=== PATIENT | female | born 1990 | race Caucasian/White ===

== ENCOUNTER 2019-01-06 09:18 | Emergency (ER) | payer SELFPAY ==
[2019-01-06 09:25] VITALS: BMI 19.2
--- NOTE | 2019-01-06 09:35 | PDOC ---
History of Present Illness - General Chief Complaint: Vaginal Bleeding Stated Complaint: VAGINAL BLEEDING Time Seen by Provider: 01/06/19 09:30 History Source: Patient, Parent(s) Exam Limitations: Language Barrier - History of Present Illness Travel History: Yes (From , arrived 12/31/2018) Initial Comments: 01/06/19 10:02 28yo F with no significant PMH presenting to ED for vaginal bleeding. She came from the about 1 week ago. She was on OCPs "Noge?" for 3 years and stopped taking it 1 month ago. She was having bleeding after stopping but the bleeding stopped for about 1.5 weeks. Bleeding returned last night and has been worse today. She states that she used about 2 pads or so before but today she used pads and went through 3 towels. She noticed clots as well. She endorses pelvic cramping. Denies fevers, chills, n/v/d, urinary symptoms, back pain, sob, chest pain, lightheadedness, dizziness, palpitations. PMD: in PMH: none PSH: none Meds: none Allergies: nkda Past History - Past Medical History Allergies/Adverse Reactions: Allergies Allergy/AdvReac Type Severity Reaction Status Date / Time No Known Allergies Allergy Verified 01/06/19 09:24 Home Medications: Ambulatory Orders NK [No Known Home Medication] 01/06/19 COPD: No - Suicide/Smoking/Psychosocial Hx Smoking History: Never smoked Information on smoking cessation initiated: No Hx Alcohol Use: No Drug/Substance Use Hx: No *Physical Exam - Vital Signs Last Vital Signs Temp Pulse Resp BP Pulse Ox 98 F 100 H 18 118/81 100 01/06/19 09:23 01/06/19 09:23 01/06/19 09:23 01/06/19 09:23 01/06/19 09:23 ED Treatment Course - LABORATORY CBC & Chemistry Diagram: 01/06/19 10:23 01/06/19 10:23 Medical Decision Making - Medical Decision Making 01/06/19 10:12 28yo F with no significant PMH presenting to ED for vaginal bleeding. She came from the about 1 week ago. She was on OCPs "Noge?" for 3 years and stopped taking it 1 month ago. She was having bleeding after stopping but the bleeding stopped for about 1.5 weeks. Bleeding returned last night and has been worse today. She states that she used about 2 pads or so before but today she used pads and went through 3 towels. She noticed clots as well. She endorses pelvic cramping. Denies fevers, chills, n/v/d, urinary symptoms, back pain, sob, chest pain, lightheadedness, dizziness, palpitations. Vitals: hr 100 PE: bright blood in vaginal vault with clots, actively bleeding. discomfort with bimanual exam ddx includes but not limited to (iup v. ectopic), , fibroids, medication discontinuation, coagulopathy, mass/malignancy with tachycardia, will order cbc, ts, cmp ua, upreg iv fluids, tylenol for pain 01/06/19 12:32 Labs show low hgb (9.4), low MCV and elevated RDW, likely iron deficiency. Urine positive LE but few bacteria. Blood likely from menstruation. TVUS normal, no masses, normal adnexa. 01/06/19 12:32 Pt states bleeding is less than this morning. Vitals are normal, safe for dc home. Given referral to master machinist. pt understands and agrees to plan. *DC/Admit/Observation/Transfer Diagnosis at time of Disposition: Vaginal bleeding - Discharge Dispostion Disposition: HOME Condition at time of disposition: Good Decision to Admit order: No - Referrals Referrals: Lucas Zabala MD [Staff Physician] - - Patient Instructions Printed Discharge Instructions: DI for Vaginal Bleeding Additional Instructions: Hoy te vieron en la skip de emergencias por sangrado vaginal. Parece que se debe a la interrupcin de las pldoras anticonceptivas. La ecografa fue normal. Los anlisis de anaya muestran que puede tener deficiencia de paco. El sangrado abundante debe detenerse en el siguiente da o dos. Puede shital Tylenol o Motrin para el dolor segn sea necesario. Recomiendo concertar reagan kate con un gineclogo. La informacin se proporciona a continuacin. Utilice las almohadillas proporcionadas en lugar de las toallas. Regrese a la skip de emergencias si el dolor empeora, el sangrado empeora, se siente mareado, siente que va a desmayarse o si se presenta algn sntoma nuevo. Gena You were seen in the emergency room today for vaginal bleeding. It seems like it is due to stopping the control pills. The ultrasound was normal. The blood tests show that you may be iron deficient. Heavy bleeding should stop in the next day or two. You can take Tylenol or Motrin for the pain as needed. I recommend making an appointment with a security lead. Information is provided below. Use the pads provided instead of the towels. Please come back to the emergency room if pain gets worse, bleeding gets worse, you feel lightheaded, you feel like you are going to faint or if any new concerning symptom develops. Thank you Print Language: [id number] - Post Discharge Activity
[2019-01-06] MEDS ORDERED: SODIUM CHLORIDE 1,000 ML IV STA (09:52)
[2019-01-06] MEDS ORDERED: ACETAMINOPHEN 500 MG TABLET (FP) PO ONE (09:52)
[2019-01-06 10:05] LABS: EPI CELLS 1.1 /HPF (0-5/HPF); HCG,QUALITATIVE URINE Negative; HYALINE CASTS 16 /lpf (0-8); URINE APPEARANCE TURBID; URINE BILIRUBIN 1+ (NEGATIVE); URINE COLOR RED; URINE GLUCOSE (UA) NEGATIVE (NEGATIVE); URINE KETONE NEGATIVE (NEGATIVE); URINE LEUK ESTERASE 2+ (NEGATIVE); URINE NITRITE POSITIVE (NEGATIVE); URINE PROTEIN 2+ (NEGATIVE); URINE RBC 8339 /hpf (0-4); URINE UROBILINOGEN 0.2 mg/dL (0.2-1.0); URINE WBC 6 /hpf (0-5)
[2019-01-06] MEDS ORDERED: ACETAMINOPHEN 325 MG TABLET (FP) ONE (10:07)
[2019-01-06 10:27] LABS: EOS % 1.8 % (0-4.5); HEMATOCRIT 30.2 % (32.4-45.2); HEMOGLOBIN 9.4 GM/dL (10.7-15.3); MCH 22.5 pg (25.7-33.7); MCHC 31.2 g/dl (32.0-36.0); MEAN CELL VOLUME 72.1 fl (80-96); MEAN PLT VOLUME 9.2 fl (7.5-11.1); NEUT % 38.2 % (42.8-82.8); PLATELET COUNT 244 K/MM3 (134-434); RBC 4.19 M/mm3 (3.60-5.2); RDW 17.2 % (11.6-15.6); WHITE BLOOD COUNT 3.9 K/mm3 (4.0-10.0)
--- NOTE | 2019-01-06 10:37 | PDOC ---
Documentation entered by Amirah Aceves SCRIBE, acting as scribe for Byron Welsh MD. Byron Welsh MD: This documentation has been prepared by the Ketan gurrola Sammi, SCRIBE, under my direction and personally reviewed by me in its entirety. I confirm that the documentation accurately reflects all work, treatment, procedures, and medical decision making performed by me. Attending Attestation - Resident Resident Name: Erna Rodas - ED Attending Attestation I have performed the following: I have examined & evaluated the patient, The case was reviewed & discussed with the resident, I agree w/resident's findings & plan, Exceptions are as noted - HPI HPI: 01/06/19 10:13 The patient is a 28 year old female, with no significant PMH, who presents to the emergency room for evaluation of over 1 month of vaginal bleeding. Pt reports bleeding began 1 month ago, was intermittent, about the same as a period (4-5 pads per day) and then stopped for 1 week and half but then returned yesteday. She notes the bleeding since yesterday has been heavier and she has noted some clotting, and has had to use a towel instead of pads. She complains of suprapubic and low back pain intermittently that she describes as cramping. The patient states she had stopped her control pill that she was on for 3 years about 1 month ago and the bleeding started shortly afterwards. The patient arrived from [place] this past weekend and reports being evaluated there a couple of weeks ago where she was informed the bleeding was due to terminating the control. The patient does not yet have a provider here. Denies nausea, vomiting, headache, constipation, or diarrhea. Denies CP/SOB, headache, focal weakness/numbness. Denies F/C, vaginal DC. She is not sexually active. Allergies: NKA - Physicial Exam PE: 01/06/19 10:35 agree with resident exam Well appearing No abd ttp, rebound or guarding No CVAT No back ttp No midline spinal ttp - Medical Decision Making 01/06/19 10:36 28yo F presents to the ED with vaginal bleeding intermittently for 1 month immediately after stopping PO control Vitals with borderline tachycardia, otherwise wnl DDx includes DUB vs first trimester bleeding vs ovarian cyst (although no R or L adnexal ttp on Dr. Rodas's exam) Plan for urine preg, labs, TVUS, UA, reassess 01/06/19 13:26 UPT neg Labs with anemia to 9.4, otherwise wnl UA with possible UTI, although dirty sample and thus will hold off on treatment as pt has no urinary sxs TVUS wnl Likely DUB s/p stopping OCPs She is hemodynamically stable and well appearing Communicated to patient to return to the ED if she is soaking through 2 or more pads per hour for more than 2 hours She expresses understadning She will f/u with Dr. Zabala I discussed the physical exam findings, ancillary test results and final diagnoses with the patient. I answered all of the patient's questions. The patient was satisfied with the care received and felt comfortable with the discharge plan and treatment plan. The patient will call their primary care physician within 24 hours to arrange follow-up and will return to the Emergency Department with any new, persistent or worsening symptoms.
[2019-01-06 10:55] LABS: ALBUMIN 3.5 g/dl (3.4-5.0); BILIRUBIN,TOTAL 0.2 mg/dL (0.2-1); BLOOD UREA NITROGEN 14.1 mg/dL (7-18); CALCIUM 8.8 mg/dL (8.5-10.1); CREATININE 0.6 mg/dL (0.55-1.3); POTASSIUM 4.7 mmol/L (3.5-5.1); TOT PROT 7.3 g/dl (6.4-8.2)
[2019-01-06 12:42] VITALS: BP 118/76; PULSE 72; TEMP 98.4
== END 2019-01-06 12:42 | disposition home or self-care (01) ==
LOC: JER 09:18
PROC: 3E0337Z Introduction of Electrolytic and Water Balance Substance into Peripheral Vein, Percutaneous Approach (ICD-10-PCS; principal; 2019-01-06)
DX: N93.9 Abnormal uterine and vaginal bleeding, unspecified (principal)
CPT/HCPCS: 36415; 76830-TC; 80053; 81003; 84703; 85025; 86850; 86900; 86901; 87086; 99283-25; J7030

== ENCOUNTER 2021-12-16 12:18 | Emergency (ER) | payer OTHER ==
[2021-12-16 12:26] VITALS: BP 119/81; PULSE 102; TEMP 97; BMI 23.3
[2021-12-16] MEDS ORDERED: ACETAMINOPHEN 500 MG TABLET (FP) PO ONE (12:54)
[2021-12-16] MEDS ORDERED: ACETAMINOPHEN 325 MG TABLET (FP) ONE (13:26)
[2021-12-16 14:16] LABS: BASO % 0.6 % (0-2.0); EOS % 0.8 % (0-4.5); HEMATOCRIT 37.2 % (32.4-45.2); HEMOGLOBIN 12.5 GM/dL (10.7-15.3); LYMPH % 27.4 % (8-40); MCH 28.2 pg (25.7-33.7); MCHC 33.7 g/dl (32.0-36.0); MEAN CELL VOLUME 83.5 fl (80-96); MEAN PLT VOLUME 9.7 fl (7.5-11.1); MONO % 7.3 % (3.8-10.2); NEUT % 63.9 % (42.8-82.8); PLATELET COUNT 245 10^3/uL (134-434); RBC 4.45 M/mm3 (3.60-5.2); RDW 13.3 % (11.6-15.6); WHITE BLOOD COUNT 7.8 K/mm3 (4.0-10.0)
[2021-12-16 14:42] LABS: BLOOD UREA NITROGEN 9.5 mg/dL (7-18)
[2021-12-16 14:45] LABS: CREATININE 0.6 mg/dL (0.55-1.3)
[2021-12-16 15:39] LABS: EPI CELLS 21 /uL (0-25.1); HYALINE CASTS 0 /uL (0-3.1); URINE APPEARANCE CLEAR; URINE BACTERIA 141 /uL (0-1359); URINE BILIRUBIN NEGATIVE (NEGATIVE); URINE COLOR YELLOW; URINE GLUCOSE (UA) NEGATIVE (NEGATIVE); URINE KETONE NEGATIVE (NEGATIVE); URINE LEUK ESTERASE NEGATIVE (NEGATIVE); URINE NITRITE NEGATIVE (NEGATIVE); URINE PROTEIN NEGATIVE (NEGATIVE); URINE RBC 2 /uL (0-23.9); URINE UROBILINOGEN 0.2 mg/dL (0.2-1.0); URINE WBC 4 /uL (0-25.8)
== END 2021-12-16 18:00 | disposition home or self-care (01) ==
LOC: JER 12:18
DX: O26.892 Other specified pregnancy related conditions, second trimester (principal); R10.30 Lower abdominal pain, unspecified; Z3A.16 16 weeks gestation of pregnancy
CPT/HCPCS: 36415; 76815-TC; 80048; 81003; 85025; 86850; 86900; 86901; 87086; 99284-25

== ENCOUNTER 2022-07-18 18:23 | Inpatient (IN) | payer OTHER ==
[2022-07-18 18:34] VITALS: BMI 24.5
[2022-07-18] MEDS ORDERED: ACETAMINOPHEN 325 MG TABLET (FP) PO ONE (20:46)
[2022-07-18] MEDS ORDERED: ACETAMINOPHEN 325 MG TABLET (FP) ONE (21:14)
[2022-07-18 21:40] LABS: BASO % 0.4 % (0-2.0); EOS % 1.2 % (0-4.5); HEMATOCRIT 42.7 % (32.4-45.2); HEMOGLOBIN 14.1 GM/dL (10.7-15.3); LYMPH % 29.3 % (8-40); MCH 26.8 pg (25.7-33.7); MEAN CELL VOLUME 81.3 fl (80-96); MEAN PLT VOLUME 9.6 fl (7.5-11.1); MONO % 10.5 % (3.8-10.2); NEUT % 58.6 % (42.8-82.8); PLATELET COUNT 161 10^3/uL (134-434); RBC 5.26 M/mm3 (3.60-5.2); RDW 15.7 % (11.6-15.6); WHITE BLOOD COUNT 8.5 K/mm3 (4.0-10.0)
[2022-07-18 21:46] LABS: EPI CELLS 9 /uL (0-25.1); HYALINE CASTS 0 /uL (0-3.1); URINE APPEARANCE CLEAR; URINE BILIRUBIN NEGATIVE (NEGATIVE); URINE COLOR DK YELLOW; URINE GLUCOSE (UA) NEGATIVE (NEGATIVE); URINE KETONE NEGATIVE (NEGATIVE); URINE LEUK ESTERASE 1+ (NEGATIVE); URINE NITRITE POSITIVE (NEGATIVE); URINE PROTEIN NEGATIVE (NEGATIVE); URINE RBC 21 /uL (0-23.9); URINE UROBILINOGEN 0.2 mg/dL (0.2-1.0); URINE WBC 39 /uL (0-25.8)
[2022-07-18 21:55] LABS: HCG,QUALITATIVE URINE Negative
[2022-07-18 21:59] LABS: CALCIUM 8.9 mg/dL (8.5-10.1)
[2022-07-18 22:00] LABS: BLOOD UREA NITROGEN 19.2 mg/dL (7-18)
[2022-07-18 22:03] LABS: CREATININE 1.1 mg/dL (0.55-1.3)
[2022-07-18 22:05] LABS: TOT PROT 7.1 g/dl (6.4-8.2)
[2022-07-18 22:12] LABS: BILIRUBIN,TOTAL 0.4 mg/dL (0.2-1)
[2022-07-18] MEDS ORDERED: CEFTRIAXONE 1,000 MG in DEXTROSE 5%-WATER - 50 ML IVPB ONE (22:48)
[2022-07-18] MEDS ORDERED: CEFTRIAXONE 1 GM/50 ML BAG ONE (22:59)
[2022-07-18 23:02] LABS: URINE BACTERIA 22 /uL (0-1359)
[2022-07-18] MEDS ORDERED: KETOROLAC TROMETHAMINE 15 MG/ML VIAL IVPUSH ONE (23:49)
[2022-07-18] MEDS ORDERED: TAMSULOSIN HCL 0.4 MG CAP PO ONE (23:50)
[2022-07-18] MEDS ORDERED: LACTATED RINGERS SOLUTION 1000 ML INFUS.BAG IV ONE (23:50)
[2022-07-19] MEDS ORDERED: KETOROLAC TROMETHAMINE 15 MG/ML VIAL ONE (00:17)
[2022-07-19] MEDS ORDERED: TAMSULOSIN HCL 0.4 MG CAP ONE (00:17)
[2022-07-19] MEDS ORDERED: SODIUM CHLORIDE 1,000 ML IV SCH (01:30)
[2022-07-19] MEDS ORDERED: TAMSULOSIN HCL 0.4 MG CAP PO SCH (08:30)
[2022-07-19 09:00] LABS: HEMATOCRIT 41.1 % (32.4-45.2); HEMOGLOBIN 13.5 GM/dL (10.7-15.3); MCH 26.9 pg (25.7-33.7); MCHC 32.9 g/dl (32.0-36.0); MEAN CELL VOLUME 81.8 fl (80-96); MEAN PLT VOLUME 10.5 fl (7.5-11.1); PLATELET COUNT 161 10^3/uL (134-434); RBC 5.02 M/mm3 (3.60-5.2); RDW 15.6 % (11.6-15.6); WHITE BLOOD COUNT 4.5 K/mm3 (4.0-10.0)
[2022-07-19 09:12] LABS: INR 1.12 (0.83-1.09); PROTHROMBIN TIME (PATIENT) 12.9 SEC (9.7-13.0)
[2022-07-19 09:15] LABS: ACTIVATED PTT 27.9 SECONDS (25.2-36.5)
[2022-07-19] MEDS ORDERED: PROPOFOL 40 ML ONE (09:19)
[2022-07-19] MEDS ORDERED: SUCCINYLCHOLINE CHLORIDE 200 MG/10 ML SYRINGE ONE (09:20)
[2022-07-19] MEDS ORDERED: MIDAZOLAM HCL 2 MG/2 ML SINGLE DOSE VIAL ONE (09:20)
[2022-07-19 09:26] LABS: CALCIUM 8.8 mg/dL (8.5-10.1)
[2022-07-19 09:27] LABS: ALBUMIN 3.6 g/dl (3.4-5.0); BLOOD UREA NITROGEN 14.4 mg/dL (7-18)
[2022-07-19 09:30] LABS: CREATININE 0.7 mg/dL (0.55-1.3)
[2022-07-19 09:31] LABS: BILIRUBIN,TOTAL 0.6 mg/dL (0.2-1)
[2022-07-19 09:34] LABS: TOT PROT 6.3 g/dl (6.4-8.2)
[2022-07-19] MEDS ORDERED: DEXAMETHASONE SOD PHOSPHATE 4 MG/1 ML VIAL ONE (09:34)
[2022-07-19] MEDS ORDERED: ONDANSETRON 4 MG/2 ML VIAL ONE (09:34)
[2022-07-19] MEDS ORDERED: LIDOCAINE HCL/PF 2% SDV 5ML VIAL ONE (09:34)
[2022-07-19] MEDS ORDERED: ceFAZolin SODIUM 1 GM VIAL ONE (09:44)
[2022-07-19] MEDS ORDERED: ceFAZolin SODIUM 1 GM VIAL IVPB ONE (09:45)
[2022-07-19] MEDS ORDERED: CEFTRIAXONE 1 GM in DEXTROSE 5%-WATER - 50 ML IVPB SCH (10:00)
[2022-07-19] MEDS ORDERED: KETOROLAC TROMETHAMINE 30 MG/1 ML VIAL ONE (10:22)
[2022-07-19] MEDS ORDERED: ONDANSETRON 4 MG/2 ML VIAL IVPUSH PRN (10:46)
[2022-07-19] MEDS ORDERED: cefTRIAXone SODIUM 1 GM VIAL ONE (10:58)
[2022-07-19] MEDS ORDERED: LACTATED RINGERS SOLUTION 1,000 ML IV SCH (11:00)
[2022-07-19] MEDS: CEFTRIAXONE 1 GM in DEXTROSE 5%-WATER - 50 ML IVPB SCH ×2 (11:03)
[2022-07-19] MEDS ORDERED: ACETAMINOPHEN 325 MG TABLET (FP) PO ONE (11:30)
[2022-07-20] MEDS: TAMSULOSIN HCL 0.4 MG CAP PO SCH (10:49)
[2022-07-20] MEDS: SODIUM CHLORIDE 1,000 ML IV SCH ×2 (10:49→10:51)
[2022-07-20] MEDS ORDERED: DOCUSATE SODIUM 100 MG CAPSULE (FP) PO SCH (22:00)
[2022-07-20] MEDS: oxyCODONE HCL 5 MG TABLET PO PRN (22:04)
[2022-07-21] MEDS: TAMSULOSIN HCL 0.4 MG CAP PO SCH (09:39)
[2022-07-21] MEDS ORDERED: CEPHALEXIN MONOHYDRATE 500 MG CAPSULE (UD) PO SCH (10:00)
[2022-07-21 11:34] VITALS: BP 130/72; PULSE 76; RESP 18; TEMP 98.7
[2022-07-21] MEDS: oxyCODONE HCL 5 MG TABLET PO PRN (12:54)
== END 2022-07-21 15:49 | disposition home or self-care (01) | DRG 463 ==
LOC: JER 18:23 → JERBED 23:54 → J8W 07-19 17:37
PROVIDERS: ADMIT Internal Medicine; ATTEND Nurse Practitioner Acute Care
PROC: 0T778DZ Dilation of Left Ureter with Intraluminal Device, Via Natural or Artificial Opening Endoscopic (ICD-10-PCS; principal; 2022-07-19 09:30)
PROC: BT1FZZZ Fluoroscopy of Left Kidney, Ureter and Bladder (ICD-10-PCS; 2022-07-19 09:30)
DX: N13.6 Pyonephrosis (principal); N39.0 Urinary tract infection, site not specified; R74.01 Elevation of levels of liver transaminase levels; N12 Tubulo-interstitial nephritis, not specified as acute or chronic
CPT/HCPCS: 36415; 74176-TC; 76000-TC-FY; 80053; 81003; 84703; 85025; 85027; 85610; 85730; 86704; 86803; 87086; 87517; 94760; 99285-25; C2617; C9803-CS; U0003; U0005